=== PATIENT | male | born 1965 | race Caucasian/White ===

== ENCOUNTER → 2016-09-18 | Outpatient (REF) | payer OTHER ==
[~2016-09-18] MED LIST: ADV500INH INH; ALBU17IN INH; ASPI81TA45 PO; ATOR1TAB18 PO; FENO200C PO; LISI10TA4 PO; LOVA1CAP17 PO; METF1000 PO; TYLE500T78 PO
[2016-09-18 12:17] LABS: BASO % 0.5 % (0.0-1.0); EOS # 0.7 K/mm3 (0.0-0.50); EOS % 6.6 % (0.0-3.0); LARGE UNSTAINED CELL # 0.2 K/mm3 (0.0-0.4); LARGE UNSTAINED CELL % 1.8 % (0.0-4.0); LYMPH # 2.7 K/mm3 (1.5-4.5); LYMPH % 25.5 % (24.0-44.0); MEAN CORPUSCULAR HEMOGLOBIN 21.3 pg (27.0-33.0); MEAN CORPUSCULAR HGB CONC 30.4 g/dl (32.0-36.5); MONO # 0.6 K/mm3 (0.0-0.8); MONO % 6.1 % (0.0-5.0); NEUTROPHILS # 6.2 K/mm3 (1.8-7.7); NEUTROPHILS % 59.5 % (36.0-66.0); PLATELET COUNT, AUTOMATED 290 k/mm3 (150-450); RED CELL DISTRIBUTION WIDTH 14.5 % (11.5-14.5); WHITE BLOOD COUNT 10.5 K/mm3 (4.0-10.0)
[2016-09-18 13:12] LABS: ALBUMIN 4.1 GM/DL (3.2-5.2); ALBUMIN/GLOBULIN RATIO 1.28 (1.00-1.93); ALKALINE PHOSPHATASE 57 U/L (45-117); ALT/SGPT 35 U/L (12-78); ANION GAP 10 MEQ/L (8-16); AST/SGOT 15 U/L (15-37); BILIRUBIN,TOTAL 0.4 MG/DL (0.2-1.0); BLOOD UREA NITROGEN 20 MG/DL (7-18); CALCIUM LEVEL 10.2 MG/DL (8.5-10.1); CARBON DIOXIDE LEVEL 24 MEQ/L (21-32); CHLORIDE LEVEL 108 MEQ/L (98-107); CHOLESTEROL LEVEL 102 MG/DL (<200); CREATININE FOR GFR 0.99 MG/DL (0.70-1.30); GLOMERULAR FILTRATION RATE > 60.0 (>56); GLUCOSE, FASTING 115 MG/DL (70-105); POTASSIUM SERUM 4.4 MEQ/L (3.5-5.1); SODIUM LEVEL 142 MEQ/L (136-145); TOTAL PROTEIN 7.3 GM/DL (6.4-8.2); TRIGLYCERIDES LEVEL 94 MG/DL (<150)
[2016-09-18 15:37] LABS: FREE T4 1.05 NG/DL (0.76-1.46)
[2016-09-19 08:53] LABS: THYROID PEROXIDASE ANTIBODY 33.8 U/ML (<60.0)
== END | disposition home or self-care (01) ==
LOC: M SFHCPLAZ 08:46
PROVIDERS: ATTEND Nurse Practitioner Family
DX: J45.909 Unspecified asthma, uncomplicated (principal); E11.9 Type 2 diabetes mellitus without complications; E78.1 Pure hyperglyceridemia; Z80.42 Family history of malignant neoplasm of prostate; R79.89 Other specified abnormal findings of blood chemistry
CPT/HCPCS: 36415; 80053; 80061; 83036; 84439; 84443; 85025; 86376; G0103

== ENCOUNTER → 2016-09-25 | Outpatient (CLI) | payer BC, OTHER ==
[~2016-09-25] MED LIST changes: +ISOVUE-370 76% 100ML VIAL (Q9967) As Ordered ONE
--- NOTE | 2016-09-25 16:55 | REP ---
CT abdomen pelvis 09/25/2016 performed with dynamic IV contrast enhancement: Indication : 51-year-old male with family history of abdominal aortic aneurysm in father. Comparison: Ultrasound of the abdominal aorta 08/29/2016. Technique: Following dynamic IV contrast administration with 100 m: Isovue-370 mg/mL, 3 mm contiguous spiral axial sections were performed through the abdomen and pelvis. Findings: Minimal interstitial changes are present in the lingula, likely focal scarring. Liver, spleen, pancreas, gallbladder are unremarkable. Adrenal glands are normal. Kidneys are without hydronephrosis or obstructing ureteral calculi bilaterally. The stomach and small bowel are within normal limits. The terminal ileum and the appendix are normal. There is no free air or ascites Abdominal aorta is of normal course and caliber and measures maximum of 2.1 cm AP x 2.2 cm transverse dimension at the level of the diaphragm, with distal tapering. Minimal atherosclerotic changes are seen within the aorta and the right common iliac artery. The celiac, superior mesenteric artery, and renal arteries are patent, without focal narrowing. The inferior mesenteric artery is also patent. There is no retroperitoneal adenopathy. Small urachal remnant is identified consistent with normal anatomic variant. The prostate is mildly enlarged measuring 4.3 cm AP x 5.3 cm transverse by 4 cm cranial caudal dimension with mild extrinsic impression upon the inferior bladder. There are scattered colonic diverticula identified. There is moderate retained colonic stool. The terminal ileum and the appendix are normal There is no free intraperitoneal air or ascites. There are advanced degenerative disc changes seen throughout the lumbosacral spine. Impression: 1. No evidence of abdominal aortic aneurysm. There are mild atherosclerotic changes within the aorta. 2. Mild prostatic hypertrophy with mild extrinsic impression upon the inferior bladder. 3. Advanced degenerative disc changes seen throughout lumbosacral spine, yet most pronounced at L3-4. Signed by Oma Martinez MD 09/25/2016 10:01 P
== END | disposition home or self-care (01) ==
LOC: M RAD 13:32
PROVIDERS: ATTEND Nurse Practitioner Family
DX: Z82.49 Family history of ischemic heart disease and other diseases of the circulatory system (principal); N40.0 Benign prostatic hyperplasia without lower urinary tract symptoms; I70.0 Atherosclerosis of aorta
CPT/HCPCS: 74177; Q9967

== ENCOUNTER → 2017-05-13 | Outpatient (REF) | payer OTHER ==
[~2017-05-13] MED LIST changes: -ATOR1TAB18 PO; +ATOR80TA59 PO; -ISOVUE-370 76% 100ML VIAL (Q9967) As Ordered ONE; -METF1000 PO; +METF10004 PO
[2017-05-13 12:22] LABS: ALBUMIN 4.1 GM/DL (3.2-5.2); ALBUMIN/GLOBULIN RATIO 1.37 (1.00-1.93); ALKALINE PHOSPHATASE 65 U/L (45-117); ALT/SGPT 35 U/L (12-78); ANION GAP 11 MEQ/L (8-16); AST/SGOT 17 U/L (15-37); BILIRUBIN,TOTAL 0.2 MG/DL (0.2-1.0); BLOOD UREA NITROGEN 21 MG/DL (7-18); CALCIUM LEVEL 9.1 MG/DL (8.5-10.1); CARBON DIOXIDE LEVEL 24 MEQ/L (21-32); CHLORIDE LEVEL 106 MEQ/L (98-107); CHOLESTEROL LEVEL 119 MG/DL (<200); CREATININE FOR GFR 0.99 MG/DL (0.70-1.30); FREE T4 0.99 NG/DL (0.76-1.46); GLOMERULAR FILTRATION RATE > 60.0 (>56); GLUCOSE, FASTING 138 MG/DL (70-105); POTASSIUM SERUM 4.1 MEQ/L (3.5-5.1); SODIUM LEVEL 141 MEQ/L (136-145); TOTAL PROTEIN 7.1 GM/DL (6.4-8.2); TRIGLYCERIDES LEVEL 208 MG/DL (<150)
== END ==
LOC: M SFHCPLAZ 08:07
PROVIDERS: ATTEND Nurse Practitioner Family
DX: E11.9 Type 2 diabetes mellitus without complications (principal); R79.89 Other specified abnormal findings of blood chemistry; E78.1 Pure hyperglyceridemia

== ENCOUNTER → 2017-06-03 | Outpatient (REF) | payer OTHER | LOC: M SFHCLERA 11:35 | PROVIDERS: ATTEND Dermatology | DX: L72.0 Epidermal cyst (principal) ==

== ENCOUNTER → 2018-10-10 | Outpatient (REF) | payer OTHER ==
[2018-10-10 11:51] LABS: HEMATOCRIT 38.8 % (42.0-52.0); HEMOGLOBIN 12.1 g/dl (13.5-17.5); MEAN CORPUSCULAR HEMOGLOBIN 21.8 pg (27.0-33.0); MEAN CORPUSCULAR HGB CONC 31.2 g/dl (32.0-36.5); PLATELET COUNT, AUTOMATED 299 10^3/uL (150-450); RED BLOOD COUNT 5.54 10^6/uL (4.30-6.10); WHITE BLOOD COUNT 9.9 10^3/uL (4.0-10.0)
[2018-10-10 12:03] LABS: ALBUMIN 4.1 GM/DL (3.2-5.2); ALT/SGPT 32 U/L (12-78); BILIRUBIN,TOTAL 0.4 MG/DL (0.2-1.0); BLOOD UREA NITROGEN 15 MG/DL (7-18); CALCIUM LEVEL 9.7 MG/DL (8.5-10.1); CARBON DIOXIDE LEVEL 26 MEQ/L (21-32); CHLORIDE LEVEL 102 MEQ/L (98-107); CHOLESTEROL LEVEL 102 MG/DL (<200); CREATININE FOR GFR 0.99 MG/DL (0.70-1.30); GLOMERULAR FILTRATION RATE > 60.0 (>56); GLUCOSE, FASTING 120 MG/DL (70-100); HDL CHOLESTEROL 33 MG/DL (>40); LDL CHOLESTEROL 49 MG/DL (<100); NON-HDL-C 69 MG/DL; POTASSIUM SERUM 4.3 MEQ/L (3.5-5.1); SODIUM LEVEL 137 MEQ/L (136-145); TOTAL PROTEIN 7.4 GM/DL (6.4-8.2); TRIGLYCERIDES LEVEL 102 MG/DL (<150)
[2018-10-10 12:10] LABS: HEMOGLOBIN A1c 6.7 %
[2018-10-10 12:14] LABS: MAU/CREAT RATIO 38.9 MCG/MG (0.0-30.0)
== END ==
LOC: M SFHCPLAZ 08:27
PROVIDERS: ATTEND Family Medicine
DX: E11.29 Type 2 diabetes mellitus with other diabetic kidney complication (principal); N18.2 Chronic kidney disease, stage 2 (mild); E78.5 Hyperlipidemia, unspecified; E78.6 Lipoprotein deficiency; J45.909 Unspecified asthma, uncomplicated

== ENCOUNTER → 2018-10-31 | Outpatient (REF) | payer OTHER ==
[2018-10-31 18:43] LABS: PERCENT SATURATION 15.3 % (19.7-50.0)
[2018-11-05 19:10] LABS: HEMOGLOBIN A2 QUANTITATIVE 4.5 % (1.8-3.2)
== END ==
LOC: M SFHCPLAZ 15:47
DX: D64.9 Anemia, unspecified (principal)

== ENCOUNTER → 2020-02-12 | Outpatient (REF) | payer OTHER | LOC: M SFHCPLAZ 14:20 | DX: E78.5 Hyperlipidemia, unspecified (principal); E11.29 Type 2 diabetes mellitus with other diabetic kidney complication; N18.2 Chronic kidney disease, stage 2 (mild) ==

== ENCOUNTER → 2020-03-16 | Outpatient (CLI) | payer OTHER ==
[2020-03-16 12:14] LABS: HEMATOCRIT 38.3 % (42.0-52.0); HEMOGLOBIN 11.7 g/dl (13.5-17.5); MEAN CORPUSCULAR HEMOGLOBIN 21.2 pg (27.0-33.0); MEAN CORPUSCULAR HGB CONC 30.5 g/dl (32.0-36.5); MEAN CORPUSCULAR VOLUME 69.5 fl (80.0-96.0); PLATELET COUNT, AUTOMATED 334 10^3/uL (150-450); RED BLOOD COUNT 5.51 10^6/uL (4.30-6.10); WHITE BLOOD COUNT 11.3 10^3/uL (4.0-10.0)
[2020-03-16 12:32] LABS: ALT/SGPT 26 U/L (12-78); BILIRUBIN,TOTAL 0.3 MG/DL (0.2-1.0); BLOOD UREA NITROGEN 15 MG/DL (7-18); CALCIUM LEVEL 9.8 MG/DL (8.5-10.1); CARBON DIOXIDE LEVEL 26 MEQ/L (21-32); CHLORIDE LEVEL 105 MEQ/L (98-107); CHOLESTEROL LEVEL 114 MG/DL (<200); CHOLESTEROL RISK RATIO 3.166 (<5); CREATININE FOR GFR 0.89 MG/DL (0.70-1.30); GLOMERULAR FILTRATION RATE > 60.0 (>56); GLUCOSE, FASTING 101 MG/DL (70-100); HDL CHOLESTEROL 36 MG/DL (>40); LDL CHOLESTEROL 63 MG/DL (<100); NON-HDL-C 78 MG/DL; POTASSIUM SERUM 4.4 MEQ/L (3.5-5.1); SODIUM LEVEL 138 MEQ/L (136-145); TOTAL PROTEIN 7.4 GM/DL (6.4-8.2); TRIGLYCERIDES LEVEL 76 MG/DL (<150)
[2020-03-16 12:51] LABS: MALB URINE SIEMENS 68.8 MG/L; MAU/CREAT RATIO 37.8 MCG/MG (0.0-30.0)
[2020-03-16 13:46] LABS: HEMOGLOBIN A1c 6.6 %
== END ==
LOC: M PLALAB 08:18
PROVIDERS: ATTEND Student in an Organized Health Care Education/Training Program
DX: E11.29 Type 2 diabetes mellitus with other diabetic kidney complication (principal); E78.5 Hyperlipidemia, unspecified; N18.2 Chronic kidney disease, stage 2 (mild); E11.22 Type 2 diabetes mellitus with diabetic chronic kidney disease

== ENCOUNTER → 2020-11-04 | Outpatient (CLI) | payer BC, OTHER ==
[~2020-11-04] MED LIST changes: +E-Z-GAS II EFFERVESCENT PACKET (SODIUM BICARB./CITRIC ACID/SIMETHICONE) As Ordered ONE; +E-Z-HD 98% w/w 340GM SUSP BTL As Ordered ONE; +E-Z-PAQUE 96% w/w SUSP 176GM BTL As Ordered ONE; +LISI10TA22 PO; -LISI10TA4 PO
--- NOTE | 2020-11-04 16:37 | REP ---
INDICATION: DYSPHAGIA. COMPARISON: None. TECHNIQUE: This procedure was performed under the direct supervision of Dr. Bess. Images were reviewed with Dr. Bess. Liquid barium and gas producing granules were given in the erect position as well as liquid barium in the prone oblique positions in order to perform a double contrast esophagram examination. 0.9 minutes of fluoro time was utilized for this procedure. 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 The superior mediastinal structures are midline. The heart size is within normal limits. The lungs are clear. The oral and pharyngeal stages of deglutition were unremarkable. Esophageal transport is prompt and efficient and there is no evidence of esophagitis, stricture or mucosal ring. There is a small sliding-type hiatal hernia. Gastroesophageal reflux is not demonstrated on this examination. IMPRESSION: There is a small sliding-type hiatal hernia. Otherwise, unremarkable double-contrast esophagram examination. <Electronically signed by Alfredo Townsend > 11/04/20 1610 <Electronically signed by Chilo Bess > 11/04/20 [id number]
== END ==
LOC: M RAD 07:52
PROVIDERS: ATTEND Student in an Organized Health Care Education/Training Program
DX: R13.10 Dysphagia, unspecified (principal)

== ENCOUNTER → 2021-02-20 | Outpatient (REF) | payer BC, OTHER ==
[~2021-02-20] MED LIST changes: -E-Z-GAS II EFFERVESCENT PACKET (SODIUM BICARB./CITRIC ACID/SIMETHICONE) As Ordered ONE; -E-Z-HD 98% w/w 340GM SUSP BTL As Ordered ONE; -E-Z-PAQUE 96% w/w SUSP 176GM BTL As Ordered ONE
[2021-02-20 19:43] LABS: MALB URINE SIEMENS 37.6 MG/L; MAU/CREAT RATIO 17.1 MCG/MG (0.0-30.0)
== END ==
LOC: M LAB REF 17:06
PROVIDERS: ATTEND Internal Medicine Nephrology
DX: N18.1 Chronic kidney disease, stage 1 (principal); E11.22 Type 2 diabetes mellitus with diabetic chronic kidney disease

== ENCOUNTER → 2021-03-22 | Outpatient (REF) | payer OTHER, BC | LOC: M LAB REF 16:50 | PROVIDERS: ATTEND Internal Medicine Nephrology | DX: N18.2 Chronic kidney disease, stage 2 (mild) (principal) ==

== ENCOUNTER → 2021-06-08 | Outpatient (CLI) | payer BC, OTHER ==
[2021-06-08 15:01] LABS: BASO # 0.1 10^3/uL (0.0-0.2); BASO % 0.7 % (0.0-1.0); EOS # 0.7 10^3/uL (0.0-0.5); HEMATOCRIT 38.9 % (42.0-52.0); HEMOGLOBIN 11.8 g/dl (13.5-17.5); LYMPH # 2.8 10^3/uL (1.5-5.0); LYMPH % 30.4 % (24.0-44.0); MEAN CORPUSCULAR HEMOGLOBIN 21.2 pg (27.0-33.0); MEAN CORPUSCULAR HGB CONC 30.3 g/dl (32.0-36.5); MEAN CORPUSCULAR VOLUME 69.8 fl (80.0-96.0); MONO # 0.6 10^3/uL (0.0-0.8); NEUTROPHILS # 4.9 10^3/uL (1.5-8.5); NEUTROPHILS % 53.6 % (36.0-66.0); PLATELET COUNT, AUTOMATED 315 10^3/uL (150-450); RED BLOOD COUNT 5.57 10^6/uL (4.30-6.10); WHITE BLOOD COUNT 9.1 10^3/uL (4.0-10.0)
[2021-06-08 15:20] LABS: HEMOGLOBIN A1c 6.2 %
[2021-06-08 15:32] LABS: ALBUMIN 3.8 GM/DL (3.2-5.2); ALT/SGPT 24 U/L (12-78); BILIRUBIN,TOTAL 0.4 MG/DL (0.2-1.0); BLOOD UREA NITROGEN 15 MG/DL (7-18); CALCIUM LEVEL 9.4 MG/DL (8.5-10.1); CARBON DIOXIDE LEVEL 27 MEQ/L (21-32); CHLORIDE LEVEL 109 MEQ/L (98-107); FERRITIN 43 NG/ML (26-388); FREE T4 1.06 NG/DL (0.76-1.46); GLOMERULAR FILTRATION RATE > 60.0 (>56); GLUCOSE, FASTING 109 MG/DL (70-100); NT-PRO BNP 74 PG/ML (<125); POTASSIUM SERUM 4.4 MEQ/L (3.5-5.1); PTH INTACT 35.4 PG/ML (18.5-88.0); SODIUM LEVEL 141 MEQ/L (136-145); THYROID STIMULATING HORMONE 0.344 uIU/ML (0.358-3.740); TOTAL 25(OH) VITAMIN D 22.6 NG/ML (30.0-100.0)
[2021-06-09 23:08] LABS: PSA TOTAL 1.3 ng/mL (0.0-4.0)
== END ==
LOC: M PLALAB 11:33
PROVIDERS: ATTEND Student in an Organized Health Care Education/Training Program
DX: E11.9 Type 2 diabetes mellitus without complications (principal)

== ENCOUNTER → 2021-06-22 | Outpatient (CLI) | payer BC, OTHER | LOC: M CARPUL 10:49 | PROVIDERS: ATTEND Student in an Organized Health Care Education/Training Program | DX: I49.8 Other specified cardiac arrhythmias (principal) ==

== ENCOUNTER → 2022-05-22 | Outpatient (CLI) | payer BC, OTHER ==
[~2022-05-22] MED LIST changes: -FENO200C PO; +FENO200C19 PO
[2022-05-22 14:15] LABS: HEMATOCRIT 39.3 % (42.0-52.0); HEMOGLOBIN 11.9 g/dl (13.5-17.5); MEAN CORPUSCULAR HEMOGLOBIN 21.3 pg (27.0-33.0); MEAN CORPUSCULAR HGB CONC 30.3 g/dl (32.0-36.5); MEAN CORPUSCULAR VOLUME 70.2 fl (80.0-96.0); PLATELET COUNT, AUTOMATED 327 10^3/uL (150-450); WHITE BLOOD COUNT 9.9 10^3/uL (4.0-10.0)
[2022-05-22 14:49] LABS: HEMOGLOBIN A1c 6.2 %
[2022-05-22 15:31] LABS: ALBUMIN 4.1 GM/DL (3.2-5.2); ALT/SGPT 21 U/L (12-78); BILIRUBIN,TOTAL 0.4 MG/DL (0.2-1.0); BLOOD UREA NITROGEN 18 MG/DL (7-18); CALCIUM LEVEL 10.2 MG/DL (8.5-10.1); CARBON DIOXIDE LEVEL 27 MEQ/L (21-32); CHLORIDE LEVEL 106 MEQ/L (98-107); CHOLESTEROL LEVEL 129 MG/DL (<200); CHOLESTEROL RISK RATIO 2.931 (<5); CREATININE FOR GFR 0.98 MG/DL (0.70-1.30); FERRITIN 57 NG/ML (26-388); GLOMERULAR FILTRATION RATE > 60.0 (>56); GLUCOSE, FASTING 100 MG/DL (70-100); HDL CHOLESTEROL 44 MG/DL (>40); IRON (FE) 102 UG/DL (65-175); LDL CHOLESTEROL 69 MG/DL (<100); NON-HDL-C 85 MG/DL; POTASSIUM SERUM 4.5 MEQ/L (3.5-5.1); SODIUM LEVEL 138 MEQ/L (136-145); THYROID STIMULATING HORMONE 0.527 uIU/ML (0.358-3.740); TOTAL PROTEIN 7.1 GM/DL (6.4-8.2); TRIGLYCERIDES LEVEL 78 MG/DL (<150)
[2022-05-22 15:59] LABS: FOLATE 9.4 NG/ML; VITAMIN B12 LEVEL 352 PG/ML
== END ==
LOC: M PLALAB 10:05
PROVIDERS: ATTEND Family Medicine
DX: N18.9 Chronic kidney disease, unspecified (principal); D63.1 Anemia in chronic kidney disease